=== PATIENT | male | born 1985 | race American Indian/Alaskan Native ===

== ENCOUNTER 2021-12-10 20:13 | Emergency (ER) | payer SELFPAY ==
[2021-12-10 21:37] LABS: Basophils # (Auto) 0.1 K/mm3 (0.0-0.1); Basophils % (Auto) 0.9 % (0.0-1.8); Eosinophils # (Auto) 0.2 K/mm3 (0.0-0.4); Hematocrit 41.5 % (35.5-45.6); Hemoglobin 13.6 gm/dl (11.8-15.2); Lymphocytes # (Auto) 2.2 K/mm3 (1.2-5.4); Lymphocytes % (Auto) 24.5 % (13.4-35.0); Mean Corpuscular HGB Conc 33 % (32-34); Mean Corpuscular Volume 81 fl (84-94); Monocytes # (Auto) 0.8 K/mm3 (0.0-0.8); Platelet Count 238 K/mm3 (140-440); Red Blood Count 5.13 M/mm3 (3.65-5.03); Red Cell Distribution Width 14.5 % (13.2-15.2)
[2021-12-10] MEDS ORDERED: ASPIRIN 81 MG TAB CHEW PO ONE (21:55)
[2021-12-10] MEDS ORDERED: MORPHINE 4 MG/1 ML INJ IV ONE (21:55)
[2021-12-10] MEDS ORDERED: NITROGLYCERIN 0.4 MG TAB SUBL SL ONE (21:55)
[2021-12-10 22:02] LABS: Alanine Aminotransferase 28 units/L (7-56); Albumin 4.2 g/dL (3.9-5); BUN/Creatinine Ratio 12; Blood Urea Nitrogen 14 mg/dL (9-20); Calcium 8.8 mg/dL (8.4-10.2); Hemolysis Index 25
--- NOTE | 2021-12-10 22:45 | Emergency Department Report ---
ED Chest Pain HPI - General Chief Complaint: Chest Pain Stated Complaint: CHEST PAIN Source: patient Mode of arrival: Ambulatory Limitations: No Limitations - History of Present Illness Initial Comments: 36-year-old male with no past medical history who presented with chest pain that started last night progressively getting worse. Pain is rated as 7/10 in severity. Pain radiates to the upper chest and right side of the neck. Patient denies any trauma or fall. No history of cardiac problems. Patient denies any fever or chills. No nausea or vomiting reported. No other modifying factors reported. - Related Data Previous Rx's Medication Instructions Recorded Last Taken Type Ketorolac [Toradol] 10 mg PO Q6H PRN 5 Days #20 tab NS 12/10/21 Unknown Rx hydrOXYzine PAMOATE [Vistaril] 50 mg PO Q6HR PRN 5 Days #20 12/10/21 Unknown Rx capsule NS Allergies Allergy/AdvReac Type Severity Reaction Status Date / Time No Known Allergies Allergy Verified 12/10/21 20:35 Heart Score - HEART Score History: Slightly suspicious EKG: Normal Age: < 45 Risk factors: No known risk factors Troponin: < normal limit HEART Score: 0 - EKG Read Time Time EKG Completed: 20:16 EKG Read Time: 20:20 - Critical Actions Critical Actions: 0-3 pts:0.9-1.7%risk of adverse cardiac event.Candidate for discharge ED Review of Systems ROS: Stated complaint: CHEST PAIN Other details as noted in HPI Comment: All other systems reviewed and negative Respiratory: denies: shortness of breath, SOB with exertion, SOB at rest Cardiovascular: chest pain ED Past Medical Hx - Medications Home Medications: Home Medications Medication Instructions Recorded Confirmed Last Taken Type Ketorolac [Toradol] 10 mg PO Q6H PRN 5 Days #20 tab NS 12/10/21 Unknown Rx hydrOXYzine PAMOATE [Vistaril] 50 mg PO Q6HR PRN 5 Days #20 12/10/21 Unknown Rx capsule NS ED Physical Exam - General Limitations: No Limitations General appearance: alert, in no apparent distress - Head Head exam: Present: normal inspection - Eye Eye exam: Present: normal appearance Pupils: Present: normal accommodation - ENT ENT exam: Present: normal exam, normal orophraynx, mucous membranes moist - Neck Neck exam: Present: normal inspection, full ROM. Absent: tenderness - Respiratory Respiratory exam: Present: normal lung sounds bilaterally. Absent: respiratory distress, wheezes, accessory muscle use - Cardiovascular Cardiovascular Exam: Present: regular rate, normal rhythm, normal heart sounds - GI/Abdominal GI/Abdominal exam: Present: soft, normal bowel sounds. Absent: distended, tenderness - Extremities Exam Extremities exam: Present: normal inspection, normal capillary refill. Absent: pedal edema - Back Exam Back exam: Present: normal inspection, full ROM. Absent: tenderness, CVA tenderness (R), CVA tenderness (L) - Neurological Exam Neurological exam: Present: alert, oriented X3 - Psychiatric Psychiatric exam: Present: normal affect, normal mood - Skin Skin exam: Present: warm, intact, normal color. Absent: rash ED Course - Reevaluation(s) Reevaluation #1: 12/10/21 22:44 Here with chest pain radiating to the right side of the neck--with unremarkable exam=--pain is worsening with deep breath this is likely pleurisy we will go ahead and rule out cardiac considering this patient age--BRENDA score and heart score is very very low with unremarkable EKG. Given 4 baby aspirin chewable, 1 nitro 0.4 mg subcu, and 4 mg morphine x1 for symptomatic relief. Reevaluation #2: 12/10/21 23:19 Noted with unremarkable work-up labs including troponin--this is likely noncardiac patient is reassured will send home with Toradol and Flexeril and close follow-up with primary doctor. Patient voiced understanding and agree with the plan BRENDA score - Brenda Score Age > 65: (0) No Aspirin use within the Past 7 Days: (0) No 3 or more CAD Risk Factors: (0) No 2 or more Angina events in past 24 hrs: (0) No Known CAD with more than 50% Stenosis: (0) No Elevated Cardiac Markers: (0) No ST Deviation Greater than 0.5mm: (0) No BRENDA Score: 0 ED Medical Decision Making - Lab Data Result diagrams: 12/10/21 21:07 12/10/21 21:07 Critical care attestation.: If time is entered above; I have spent that time in minutes in the direct care of this critically ill patient, excluding procedure time. ED Disposition Clinical Impression: Non-cardiac chest pain, Pleurisy Disposition: 01 HOME / SELF CARE / HOMELESS Is pt being admited?: No Does the pt Need Aspirin: No Condition: Stable Instructions: Nonspecific Chest Pain, Adult Additional Instructions: Take and complete your medication as prescribed to help your symptoms : Follow-up with your primary doctor in the next 3 to 5 days for progress Please do not hesitate to call or return to emergency room if your symptoms worsen Prescriptions: Ketorolac [Toradol] 10 mg PO Q6H PRN 5 Days #20 tab NS PRN Reason: Pain hydrOXYzine PAMOATE [Vistaril] 50 mg PO Q6HR PRN 5 Days #20 capsule NS PRN Reason: Pain , Severe (7-10)
[2021-12-10] MEDS ORDERED: ALBUTEROL 2.5 MG/3 ML NEBU IH ONE (23:38)
[2021-12-11] MEDS ORDERED: ALBUTEROL 2.5 MG/3 ML NEBU IH ONE (06:08)
[2021-12-11 06:16] VITALS: BP 144/79
--- NOTE | 2021-12-13 14:06 | Electrocardiograph Report ---
[facility] [place] Test Date: 2021-12-10 Test Time: 20:16:56 Pat Name: RENETTA RHODES Department: Room: Gender: M Histology Technologist: ELIU : 1985 Requested By: MAXIMO GOFF Order Number: [id number] Reading MD: Juana Martin Measurements Intervals [place] Rate: 78 P: 70 LA: 156 QRS: 69 QRSD: 80 T: 61 QT: 361 QTc: 411 Interpretive Statements Sinus rhythm Probable anteroseptal infarct, old No previous ECG available for comparison Electronically Signed On 12-13-2021 14:05:47 EDT by Juana Martin
== END 2021-12-11 07:00 | disposition home or self-care (01) ==
LOC: EEVIPCON 20:13 → ED 20:13
DX: R07.89 Other chest pain (principal); Z79.899 Other long term (current) drug therapy
CPT/HCPCS: 36415; 80053; 83880; 84484; 85025; 93005; 94640; 96374; 99284; J2270